=== PATIENT | female | born 1960 | race African-American/Black ===

== ENCOUNTER 2017-01-05 16:38 | Emergency (ER) | payer OTHER ==
[~2017-01-05 16:38] MED LIST: AMITRIPTYLIN150 MG PO; AT25 PO; CRESTOR40 MG PO; CYANO1000T PO; DENIES HOME MEDS; IBU400 PO; KLONO1 PO; LORTAB10 PO; METHOC500B PO; MIRALAXPKT PO; MOBIC15 MG PO; NORCO1 TAB PO; PRIMATENE1 TAB PO; PROAIR HFA INH; RELA5 PO; SEROQUEL1C PO; SEROQUEL200 MG PO; TAZTIA X3 PO; TIAZA4 PO; TYLENOL PM PO; [UNRECOGNIZED DRUG - REMARK]; [UNRECOGNIZED DRUG - REMARK]
== END 2017-01-05 17:53 | disposition home or self-care (01) ==
LOC: ER 16:38
DX: S49.91XA Unspecified injury of right shoulder and upper arm, initial encounter (principal); F17.200 Nicotine dependence, unspecified, uncomplicated; J45.909 Unspecified asthma, uncomplicated; I10 Essential (primary) hypertension; E78.5 Hyperlipidemia, unspecified; F41.9 Anxiety disorder, unspecified; F32.9 Major depressive disorder, single episode, unspecified; Z90.710 Acquired absence of both cervix and uterus; Z90.49 Acquired absence of other specified parts of digestive tract; K21.9 Gastro-esophageal reflux disease without esophagitis; Z79.899 Other long term (current) drug therapy; W19.XXXA Unspecified fall, initial encounter
CPT/HCPCS: 73030-RT; 99283; A9270-GY